=== PATIENT | female | born 1990 ===

== ENCOUNTER 2017-06-29 07:08 | Emergency (ER) | payer OTHER ==
[2017-06-29 07:18] VITALS: RESP 18; TEMP 99
[2017-06-29 07:19] VITALS: BMI 23.4
--- NOTE | 2017-06-29 07:37 | ED PDOC ---
HPI: Female Pain Time Seen by Provider: 06/29/17 07:29 Chief Complaint (Nursing): Female Genitourinary History Per: Patient Onset/Duration Of Symptoms: Days Current Symptoms Are (Timing): Still Present Severity: Mild Quality Of Discomfort: Cramping Additional Complaint(s): Vaginal bleeding assoc with lower abd cramping x 2 days. Abnormal Vaginal Bleeding: Yes Past Medical History Vital Signs: Last Vital Signs Temp 99 F 06/29/17 07:17 Pulse 80 06/29/17 07:17 Resp 18 06/29/17 07:17 BP 124/86 06/29/17 07:17 Pulse Ox 100 06/29/17 07:17 - Medical History PMH: No Chronic Diseases - Family History Family History: States: Unknown Family Hx - Allergies Allergies/Adverse Reactions: Allergies Allergy/AdvReac Type Severity Reaction Status Date / Time No Known Allergies Allergy Verified 06/29/17 07:26 Review of Systems Constitutional: Negative for: Fever Gastrointestinal: Positive for: Abdominal Pain Genitourinary Female: Positive for: Vaginal Bleeding Musculoskeletal: Negative for: Back Pain Physical Exam - Physical Exam Appears: Positive for: Non-toxic, No Acute Distress Skin: Positive for: Normal Color, Warm, DRY Gastrointestinal/Abdominal: Positive for: Bowel Sounds, Soft. Negative for: Tenderness Pelvic Exam: Positive for: External Exam Normal, No Masses, Blood (Mod blood in vault. Cervix closed). Negative for: Tender Adnexa, Tender Uterus - Laboratory Results Result Diagrams: 06/29/17 07:45 06/29/17 07:45 - ECG O2 Sat by Pulse Oximetry: 100 Disposition - Clinical Impression Clinical Impression: Threatened miscarriage - Patient ED Disposition Is Patient to be Admitted: No - Disposition [facility] Disposition: Routine/Home Disposition Time: 09:06 Condition: FAIR Additional Instructions: Regressa a emergencia en 2 herrera para repetir la prueba de tom Instructions: Threatened Miscarriage Forms: [facility] (Sinhala) Print Language: EAST TIMOR[place]
[2017-06-29 08:04] LABS: BASO # 0.1 K/uL (0.0-0.2); BASO % 0.4 % (0.0-2.0); EOS # 0.2 K/uL (0.0-0.7); EOS % 1.2 % (0.0-4.0); HEMOGLOBIN 13.9 g/dL (12.0-16.0); LYMPH # 2.1 K/uL (1.0-4.3); LYMPH % 15.5 % (20.0-40.0); MEAN CELL VOLUME 89.5 fl (81.0-99.0); MEAN CORPUSCULAR HEMOGLOBIN 29.6 pg (27.0-31.0); MEAN CORPUSCULAR HGB CONC 33.1 g/dL (33.0-37.0); MEAN PLATELET VOLUME 8.5 fl (7.2-11.7); MONO # 0.7 K/uL (0.0-0.8); MONO % 5.4 % (0.0-10.0); NEUT # 10.7 K/uL (1.8-7.0); NEUT % 77.5 % (50.0-75.0); NRBC % 0.1 % (0.0-0.0); RBC 4.68 Mil/uL (3.80-5.20); RED CELL DISTRIBUTION WIDTH 13.7 % (11.5-14.5); WHITE BLOOD COUNT 13.8 K/uL (4.8-10.8)
[2017-06-29 08:17] LABS: ALB/GLOB RATIO 1.2 (1.0-2.1); ALBUMIN 4.4 g/dL (3.5-5.0); ALT/SGPT 30 U/L (9-52); AST/SGOT 27 U/L (14-36); BLOOD UREA NITROGEN 9 mg/dl (7-17); CALCIUM 9.6 mg/dL (8.4-10.2); GFR AFRICAN-AMERICAN > 60; GFR NON-AFRICAN AMERICAN > 60
--- NOTE | 2017-06-29 09:03 | US ---
HISTORY: r/o ectopic COMPARISON: None available. TECHNIQUE: Transabdominal and transvaginal FINDINGS: UTERUS: Measures 7.3 x 4.7 x 5.5 cm. Normal in size and appearance. No fibroid or other mass lesion seen. ENDOMETRIUM: Measures 6 mm in diameter. Unremarkable. CERVIX: No cervical abnormality identified. RIGHT OVARY: Measures 3.0 x 1.7 x 2.8 cm. No solid mass. Normal flow. LEFT OVARY: Measures 2.6 x 1.8 x 2.7 cm. Complex cyst, 1.0 x 1.2 x 0.9 cm. Normal flow. No solid mass. FREE FLUID: No significant free fluid noted. OTHER FINDINGS: None. IMPRESSION: No intrauterine gestation. Cannot rule out ectopic in the absence of an intrauterine gestation. 1.2 cm complex left ovarian cyst. Otherwise unremarkable.
[2017-06-29 09:26] VITALS: BP 105/61; PULSE 70; O2SAT 98
== END 2017-06-29 09:20 | disposition home or self-care (01) ==
LOC: H.ER 07:08
DX: O20.0 Threatened abortion (principal)

== ENCOUNTER 2017-07-01 08:54 | Emergency (ER) | payer OTHER ==
[2017-07-01 08:59] VITALS: TEMP 97; BMI 24.0
--- NOTE | 2017-07-01 10:02 | ED PDOC ---
HPI: Female Pain Time Seen by Provider: 07/01/17 09:40 Chief Complaint (Nursing): Female Genitourinary Chief Complaint (Provider): Lower abdominal pain History Per: Patient History/Exam Limitations: no limitations Additional Complaint(s): Pt @ 6 weeks presents with lower abdominal pain and vaginal spotting X 3 days, evaluated here 2 days ago and told to return for repeat beta. Pt states pain better now and still spotting. Denies fever, nausea, vomiting. Abnormal Vaginal Bleeding: Yes Past Medical History Reviewed: Nursing Documentation, Vital Signs Vital Signs: Last Vital Signs Temp 97 F L 07/01/17 08:58 Pulse 111 H 07/01/17 08:58 Resp BP 141/80 07/01/17 08:58 Pulse Ox 96 07/01/17 08:58 - Medical History PMH: No Chronic Diseases - Surgical History Surgical History: No Surg Hx - Family History Family History: States: Unknown Family Hx - Living Arrangements Living Arrangements: With Family - Social History Current smoker - smoking cessation education provided: No Alcohol: None - Home Medications Home Medications: Ambulatory Orders Medication Instructions Recorded Ibuprofen [Motrin] 600 mg PO Q6H PRN #20 tab 07/01/17 - Allergies Allergies/Adverse Reactions: Allergies Allergy/AdvReac Type Severity Reaction Status Date / Time No Known Allergies Allergy Verified 06/29/17 07:26 Review of Systems Constitutional: Negative for: Fever, Chills Cardiovascular: Negative for: Chest Pain Respiratory: Negative for: Cough, Shortness of Breath Gastrointestinal: Positive for: Abdominal Pain. Negative for: Nausea, Vomiting , Diarrhea Genitourinary Female: Positive for: Vaginal Bleeding. Negative for: Dysuria, Hematuria, Vaginal Discharge Musculoskeletal: Negative for: Neck Pain, Back Pain Skin: Negative for: Lesions Neurological: Negative for: Headache, Dizziness Physical Exam - Reviewed Nursing Documentation Reviewed: Yes Vital Signs Reviewed: Yes - Physical Exam Appears: Positive for: Well, No Acute Distress Skin: Positive for: Normal Color, Warm, Dry Eye Exam: Positive for: Normal appearance, EOMI, PERRL Cardiovascular/Chest: Positive for: Regular Rate, Rhythm Respiratory: Positive for: Normal Breath Sounds Gastrointestinal/Abdominal: Positive for: Bowel Sounds, Soft, Tenderness ( Suprapubic). Negative for: Guarding, Rebound Extremity: Positive for: Normal ROM Neurologic/Psych: Positive for: Alert, Oriented - ECG O2 Sat by Pulse Oximetry: 96 - Physician Consult Information Time Consulting Physican Contacted: 11:49 Physician Contacted: Steve Connelly Outcome Of Conversation: Findings discussed, recommends Motrin and d/c home. Medical Decision Making Medical Decision Makin yo @ 6 weeks presents for repeat beta hCG. - beta hCG 12:00 Findings discussed with patient using [employer] designer #[id number]. Questions answered. Disposition - Clinical Impression Clinical Impression: Spontaneous - Disposition Referrals: [facility] [Outside] Disposition: Routine/Home Disposition Time: 11:50 Condition: STABLE Prescriptions: Ibuprofen [Motrin] 600 mg PO Q6H PRN #20 tab PRN Reason: Pain, Moderate (4-7) Instructions: Miscarriage Forms: [facility] (Chinese) Print Language: KENYAN
[2017-07-01 12:12] VITALS: BP 128/78; PULSE 78; RESP 19; O2SAT 98
== END 2017-07-01 12:12 | disposition home or self-care (01) ==
LOC: H.ER 08:54
DX: O03.9 Complete or unspecified spontaneous abortion without complication (principal)